=== PATIENT | female | born 1955 | race Caucasian/White ===

== ENCOUNTER → 2017-08-19 | Outpatient (CLI) | payer OTHER ==
[2017-08-19 17:56] LABS: BASO % 0.6 %; BASO ABS # 0.05 K/uL (0-0.2); EOS % 3.6 %; EOS ABS # 0.31 K/uL (0-0.5); HEMATOCRIT 37.9 % (37-47); HEMOGLOBIN 12.7 g/dL (12.0-16.0); IG# 0.02 K/uL (0.00-0.02); LYMPH % 19.8 %; LYMPH ABS # 1.71 K/uL (1.2-3.4); MEAN CELL VOLUME 95.7 fL (80-100); MEAN CORPUSCULAR HEMOGLOBIN 32.1 pg (25-34); MEAN CORPUSCULAR HGB CONC 33.5 g/dl (32-36); MONO % 9.5 %; MONO ABS # 0.82 K/uL (0.11-0.59); NEUT % 66.3 %; NEUT ABS # 5.71 K/uL (1.4-6.5); PLATELET COUNT 269 K/uL (130-400); RED CELL DISTRIBUTION WIDTH CV 13.5 % (11.5-14.5); RED CELL DISTRIBUTION WIDTH SD 46.7 fL (36.4-46.3); WHITE BLOOD COUNT 8.62 K/uL (4.8-10.8)
[2017-08-19 18:37] LABS: ALT/SGPT 23 U/L (12-78); BLOOD UREA NITROGEN 13 mg/dl (7-18); CALCIUM 8.9 mg/dl (8.5-10.1); CARBON DIOXIDE 30 mmol/L (21-32); CREATININE 0.92 mg/dl (0.60-1.20); GLUCOSE 102 mg/dl (70-99); POTASSIUM 3.3 mmol/L (3.5-5.1); SODIUM 132 mmol/L (136-145)
[2017-08-19 18:47] LABS: ALKALINE PHOSPHATASE 100 U/L (45-117); AST/SGOT 16 U/L (15-37); TOTAL PROTEIN 7.7 gm/dl (6.4-8.2)
== END | disposition home or self-care (01) ==
LOC: C.LABMFLN 16:39
PROVIDERS: ATTEND Family Medicine
DX: N05.2 Unspecified nephritic syndrome with diffuse membranous glomerulonephritis (principal); E03.9 Hypothyroidism, unspecified

== ENCOUNTER 2022-02-03 09:26 | Observation (INO) ==
--- NOTE | 2022-01-02 11:30 | PAT Medication Instructions ---
Medication Instructions Date of Service January 02, 2022 Home Medications Medication Instructions Recorded labetalol 100 mg tablet 100 mg PO BID #180 tabs 03/10/21 tramadol 50 mg tablet 50 mg PO TID PRN pain #90 tabs 12/30/21 labetalol 100 mg tablet 100 mg PO BID atorvastatin 10 mg tablet 10 mg PO QPM felodipine 10 mg tablet,extended release 24 hr 10 mg PO HS levothyroxine 125 mcg tablet 125 mcg PO QAM losartan 100 mg tablet 100 mg PO QAM naproxen 500 mg tablet 500 mg PO BID PRN tramadol 50 mg tablet 50 mg PO TID PRN ASK your surgeon for instructions naproxen 500 mg tablet 500 mg PO BID PRN DO NOT take the morning of surgery losartan 100 mg tablet 100 mg PO QAM Take morning of surgery With a small sip of water, OTHERWISE NOTHING TO EAT OR DRINK AFTER MIDNIGHT: labetalol 100 mg tablet 100 mg PO BID levothyroxine 125 mcg tablet 125 mcg PO QAM tramadol 50 mg tablet 50 mg PO TID PRN(if needed) Take evening before surgery labetalol 100 mg tablet 100 mg PO BID atorvastatin 10 mg tablet 10 mg PO QPM felodipine 10 mg tablet,extended release 24 hr 10 mg PO HS tramadol 50 mg tablet 50 mg PO TID PRN(if needed) Other Notes If you have any questions please call us at [phone] or [phone] or [phone] or [phone]
--- NOTE | 2022-01-09 10:58 | Anesthesiology Consultation ---
Date of Service January 09, 2022 Assessment & Plan (1) Encounter for pre-operative examination: - New onset A. fib with RVR: Preop EKG done at [facility] 01/09/22 notes new onset a. fib with RVR. Asymptomatic. Patient transported to [facility] ER for further evaluation. [facility] ER note (01/09/22): "Of note, the patient was witnessed to spontaneously cardioverted to normal sinus rhythm upon having her saline lock placed. The patient denied feeling palpitations or symptoms during her atrial fibrillation with RVR and also denied feeling any symptoms when she spontaneously cardioverted. Review of the telemetry demonstrated a prolonged asystolic pause of 5 seconds until normal sinus rhythm resumed. Given the patient was asymptomatic and has denied any periods of syncope or near syncope reasonable to proceed with outpatient follow-up for her new onset atrial fibrillation/paroxysmal atrial fibrillation. Case was reviewed with [place] cardiology on-call, Dr. Armstrong. Given the patient has not had episodes of syncope or near syncope and has been asymptomatic agrees with outpatient follow-up. Appreciate recommendations for the patient to specifically follow-up with electrophysiology given her prolonged pauses upon spontaneous cardioversion. Additionally, appreciate recommendations to inform the patient not to drive until this is further evaluated. CHADSVASC 3, agrees with Eliquis for anticoagulation and given the patient is currently in normal sinus rhythm in the 60s on her labetalol for blood pressure no need to add beta-yola at this time." > Pt started on Eliquis 5 mg BID* - Awaiting cardiology preop evaluation (scheduled 01/17; Dr. Vargas). - Awaiting surgeon-ordered PCP preop evaluation (scheduled 01/20; [facility]). - COVID screening: Per assessment on 01/09: No known COVID-19 positive contacts or current COVID-19 related symptoms. Travel screen negative. Patient vaccinated. Surgeon arranging preop COVID testing. Awaiting results. Chart Review Chart Review: Patient seen in Pre Admission Testing Teaching & Discussion Pre-Anesthesia Teaching/Discussion Notes: Instructed NPO after midnight before surgery,except medications with 15 cc of water. Medication instructions provided according to the [facility] guidelines. History Surgery Operation Date: 02/03/22 07:15 Proposed Procedures p Left Total Knee Arthroplasty - Angel Chung MD Height/Weight Height: 5 ft 3 in Weight: 84.5 kg Allergies Allergy/AdvReac Type Severity Reaction Status Date / Time No Known Drug Allergies Allergy Unknown Verified 01/09/22 13:40 Medications Home Medications Medication Instructions Recorded Confirmed Last Taken labetalol 100 mg tablet 100 mg PO BID #180 tabs 03/10/21 01/09/22 Unknown felodipine 10 mg tablet,extended 10 mg PO HS 12/27/21 01/09/22 Unknown release 24 hr levothyroxine 125 mcg tablet 125 mcg PO QAM 12/27/21 01/09/22 Unknown naproxen 500 mg tablet 500 mg PO BID PRN Pain 12/27/21 01/09/22 Unknown tramadol 50 mg tablet 50 mg PO TID PRN pain #90 tabs 12/30/21 01/09/22 Unknown atorvastatin 10 mg tablet 10 mg PO QPM #90 tabs 01/05/22 01/09/22 Unknown losartan 100 mg tablet 100 mg PO QAM #90 tabs 01/05/22 01/09/22 Unknown apixaban 5 mg tablet (Eliquis) 5 mg PO Q12H #60 tabs 01/09/22 Unknown Past Medical History Medical History Benign essential hypertension H/O adenomatous polyp of colon History of COVID-19 Dx 05/2020 Symptoms at time: fatigue, "sinus issues" > resolved Hyperlipidemia Hypothyroidism Obesity Exercise / Class Metabolic Activity III < 4 Walking/Shop/Light housework (one FS (no CP, mild SOB)) Past Family History Family History Mother Hypertension Uterine cancer Father Hypertension Past Surgical History Surgical History H/O colonoscopy H/O dilation and curettage History of bilateral salpingo-oophorectomy History of biopsy kidney History of bunionectomy Hx of knee surgery repair of quadriceps tendon right knee S/P hysterectomy S/P tonsillectomy Past Anesthesia History No Hx of Anesthesia Complications and No Family Hx of Anesthesia Complications History of PONV No Hx of PONV and No Hx of Motion Sickness Social History Smoking Status: Former smoker Do You Dip or Chew Tobacco: No Smoking End Date: 2012 Hx Alcohol Use: Yes Alcohol type: beer and wine alcohol intake frequency: a few times a month Hx Substance Use: No Review of Systems Patient denies chest pain, shortness of breath, fever, chills, cough, wheezing, palpitations. Physical Exam Vital Signs VITALS BP 108/62 P 65 (initially on pulse ox) > 130s (by manual/EKG) TEMP 98.0 SP02 96%RA RESP 16 PHYSICAL Full cervical extension range of motion. Full TMJ range of motion. TMD 3.5 finger breaths Mallampati Score 3 Dentition: intact, several crowns Lungs: clear throughout to auscultation Cardiac: tachycardic, irregular rhythm, no murmurs noted Spine: normal Carotid arteries: negative bruit Extremities: no edema Lab Results Anesthesia Preop Results Results Anesthesia Widget: WBC 11.76 K/ul (4.8-10.8) H 01/09/22 Hgb 14.1 g/dl (12.0-16.0) 01/09/22 Hct 41.0 % (34.1-44.9) 01/09/22 Plt 313 K/uL (130-400) 01/09/22 Na 137 mmol/L (136-145) 01/09/22 K 3.9 mmol/L (3.5-5.1) 01/09/22 Cl 102 mmol/L (98-107) 01/09/22 CO2 24 mmol/L (21-32) 01/09/22 BUN 18 mg/dl (6-23) 01/09/22 Creat 1.15 mg/dl (0.6-1.2) 01/09/22 Glucose Level 107 mg/dl (70-99(Fasting)) H 01/09/22 PT 10.9 Seconds (9.0-12.0) 01/09/22 PTT 26.1 Seconds (21.0-31.0) 01/09/22 INR 1.0 (0.9-1.1) 01/09/22 TSH 4.139 uIu/ml (0.300-4.500) 01/09/22 HA1c 5.5 % (4.5-5.6) 01/09/22 Urine Color Yellow 01/09/22 Urine Appearance Cloudy (Clear) A 01/09/22 Urine pH 6.5 (4.5-7.5) 01/09/22 Urine Specific [place] 1.017 (1.000-1.030) 01/09/22 Urine Protein 2+ (Negative) H 01/09/22 Urine Glucose (UA) Negative (Negative) 01/09/22 Urine Ketones Trace (Negative) H 01/09/22 Urine Blood Negative (Negative) 01/09/22 Urine Nitrite Negative (Negative) 01/09/22 Urine Bilirubin Negative (Negative) 01/09/22 Urine Urobilinogen Negative (Negative) 01/09/22 Urine Leukocyte Esterase 2+ (Negative) H 01/09/22 Urine WBC (Auto) 5-10 /hpf (0-5) H 01/09/22 Urine RBC (Auto) 5-10 /hpf (0-4) H 01/09/22 Urine Hyaline Casts (Auto) 10-30 /lpf (0-5) H 01/09/22 Urine Epithelial Cells (Auto) >30 /lpf (0-5) H 01/09/22 Urine Bacteria (Auto) Negative (Negative) 01/09/22 SARS-CoV-2, RNA, NAAT NEGATIVE (NEGATIVE) 01/09/22 Blood Type A Positive 01/09/22 Antibody Screen NEGATIVE 01/09/22 Testing Laboratory Results 01/09/22 TSH 4.139 (WNL) TROPONIN 5.7 (WNL) Electrocardiogram Date: 01/09/22 EKG (01/09/22 11:23): Atrial fibrillation with RVR at [address] depression, c onsider subendocardial injury. EKG (01/09/22 11:58): Atrial fibrillation with RVR at [address] and T wave abnormality. EKG (01/09/22 12:16): Normal sinus rhythm with sinus arrhythmia at [address] and T wave abnormality. Chest X-Ray Date: 01/09/22 Findings: + NAD
--- NOTE | 2022-02-02 06:50 | History & Physical Report ---
Date of Service February 02, 2022 Assessment & Plan (1) Primary osteoarthritis of left knee: Plan: Treatment options discussed with patient. She has failed conservative measures. Would unlikely get any intermediate frame tender relief from arthroscopy. She would like to proceed with knee replacement. Risks, benefits and alternatives to surgery including but not limited to infection, DVT, pain, stiffness, need for revision surgery, damage to blood vessels, damage to nerves, PE, , were discussed with the patient and they wish to proceed. Plan on left total knee arthroplasty scheduled for [facility] on 02/03/[address] Chung. Will plan on resuming home eliquis post op for DVT prophylaxis. Plan on home health PT. All questions answered. F/u post op. History of Present Illness Chief Complaint: Left knee pain Primary Care Provider: Hermelinda Read MD 66 year old female with PMHx significant for HTN, high cholesterol, hypothyroid, a-fib on Eliquis who presents with ongoing left knee pain. Pain has pain interfering with her daily activities. She has failed conservative measures including cortisone and viscoelastic injections. She would like to proceed with surgical intervention. Patient denies headaches, sweats, fevers, chills, double vision, blurred vision, cough, sore throat, dysphagia, chest pain, sob, wheezing , n/v/d/c, numbness, tingling, fatigue, urinary symptoms, mood disorders. ROS positive for left knee pain and stiffness. Allergies Allergy/AdvReac Type Severity Reaction Status Date / Time No Known Drug Allergies Allergy Unknown Verified 01/20/22 11:32 Home Medications Medication Instructions Recorded Confirmed Type felodipine 10 mg tablet,extended 10 mg PO HS 12/27/21 01/20/22 History release 24 hr levothyroxine 125 mcg tablet 125 mcg PO QAM 12/27/21 01/20/22 History naproxen 500 mg tablet 500 mg PO BID PRN Pain 12/27/21 01/20/22 History tramadol 50 mg tablet 50 mg PO TID PRN pain #90 tabs 12/30/21 01/20/22 Rx atorvastatin 10 mg tablet 10 mg PO QPM #90 tabs 01/05/22 01/20/22 Rx losartan 100 mg tablet 100 mg PO QAM #90 tabs 01/05/22 01/20/22 Rx apixaban 5 mg tablet (Eliquis) 5 mg PO Q12H #60 tabs 01/09/22 01/20/22 Rx nebivolol 20 mg tablet (Bystolic) 20 mg PO DAILY #30 tabs 01/17/22 01/20/22 Rx Past Med/Surg History Medical History Benign essential hypertension H/O adenomatous polyp of colon History of COVID-19 Hyperlipidemia Hypothyroidism Obesity Surgical History H/O colonoscopy H/O dilation and curettage History of bilateral salpingo-oophorectomy History of biopsy History of bunionectomy Hx of knee surgery S/P hysterectomy S/P tonsillectomy Family History Mother Hypertension Uterine cancer Father Hypertension Social History Smoking Status: Former smoker Second Hand Exposure: No; Hx Alcohol Use: Yes Alcohol type: beer and wine Hx Substance Use: No Preferred Language: Greenlandic Communication Ability: Effective 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 Beliefs That Will Affect Care: None marital status: Current Living Situation: Spouse current occupational status: retired Feels Safe at Home: Yes Assistive Devices: None Review of Systems All systems reviewed & are unremarkable except as noted in HPI & below Physical Exam Constitutional: well developed and well nourished; no acute distress Eyes: PERRL, conjunctivae normal, anicteric sclerae ENMT: external ear and nose normal, oropharynx normal Neck: trachea midline, no thyromegaly Respiratory: normal respiratory effort, lungs clear to auscultation Cardiovascular: RRR, no murmur, no edema Musculoskeletal: Left knee: Mild varus alignment. Medial joint line tenderness. Guarded Oliva's. Stable to valgus and varus stress. ROM 0-135 degrees. Skin: no rashes, warm and dry Neurologic: patellar DTR's 2+ bilat, sensation intact Psychiatric: A+Ox3, euthymic affect Results & Data ([place]) Diagnostic Findings Left knee: Moderate joint space narrowing medial compartment with periarticular osteophyte formation. MRI demonstrates subchondral bone marrow edema medial tibial plateau and medial femoral condyle.
[~2022-02-03 09:26] MED LIST: ACETAMINOPHEN 500 MG TAB PO SCH; BUPIVACAINE 0.5 % 5 MG/1 ML PF 10ML VIAL ONE; CeleBREX 200 MG CAP PO SCH; FAMOTIDINE 20 MG TAB PO SCH; GABAPENTIN 300 MG CAP PO SCH; LIDOCAINE 2% 20 MG/ML 5 ML SYR IV ONE; LR 500ML BOLUS, THEN 15ML/HR IV SCH; METOCLOPRAMIDE HCL 10 MG TABLET PO SCH; MIDAZOLAM HCL 1 MG/ML 2ML VIAL ONE; PROPOFOL IV EMULSION 10 MG/ML 20 ML VIAL IV ONE; ROPIVACAINE 0.5% 5 MG/ML 30 ML VIAL ONE; ROPIVACAINE 0.5% HCL/PF 150 MG, BUPIVACAINE 0.75% MPF 20 ML, EPINEPHrine 30MG/30ML (OR ... INSTIL SCH; TRANEXAMIC ACID 1,000 MG **IV Intra-op IV SCH; TRANEXAMIC ACID 1,000 MG **IV Pre-op IV SCH; ceFAZolin 2000MG 2,000 MG/15 ML SYR IV SCH; dexAMETHasone 4 MG TAB PO SCH; fentaNYL citrate 100 MCG/2 ML VIAL ONE
--- NOTE | 2022-02-03 09:34 | History & Physical Bridge Note ---
Date of Service February 03, 2022 History & Physical Bridge Note I have examined the patient, reviewed the History & Physical and in the interval since the performance of the History & Physical I have noted the following changes of clinical significance: no changes noted
[2022-02-03] MEDS ORDERED: ORTHO JOINT ANESTHETIC ONE (09:58)
[2022-02-03] MEDS ORDERED: ePHEDrine sulfate 50 MG/ML AMP IV PRN (10:38)
[2022-02-03] MEDS ORDERED: ONDANSETRON INJ 2 MG/ML 2 ML VIAL IV PRN ×2 (10:38→15:09)
[2022-02-03] MEDS ORDERED: ATROPINE SULFATE 0.1 MG/ML 10ML SYR IV PRN (10:38)
[2022-02-03] MEDS ORDERED: fentaNYL citrate 100 MCG/2 ML VIAL IV PRN (10:38)
[2022-02-03] MEDS ORDERED: PROPOFOL IV EMULSION 10 MG/ML 20 ML VIAL IV ONE ×3 (11:08→12:24)
[2022-02-03] MEDS ORDERED: ONDANSETRON INJ 2 MG/ML 2 ML VIAL ONE ×2 (11:09→12:37)
[2022-02-03] MEDS ORDERED: DEXAMETHASONE SOD INJ 4 MG/ML VIAL ONE (11:09)
[2022-02-03] MEDS ORDERED: ePHEDrine sulfate 50 MG/ML SYR ONE (11:15)
[2022-02-03] MEDS ORDERED: PHENYLEPHRINE HCL 10 MG/ML VIAL ONE (11:33)
[2022-02-03] MEDS ORDERED: fentaNYL citrate 100 MCG/2 ML VIAL ONE (12:17)
--- NOTE | 2022-02-03 12:48 | Operative Report ---
Post Operative Report Pre & Post Diagnosis Operation Date: 02/03/22 11:20 Pre-Op Diagnosis: Unilateral Primary Osteoarthritis, Left Knee Post-Op Diagnosis: Unilateral Primary Osteoarthritis, Left Knee I identified the patient and participated in the time-out.: Yes Procedure Operation Date: 02/03/22 11:20 Actual Procedures p Left Total Knee Arthroplasty(Left), superficial wound VAC- Angel Chung MD Surgeon Angel Chung MD Rope Twisting Machine Operator Greg RUIZ Estimated Blood Loss 5 Findings Consistent with Post-Op Diagnosis Specimens Bone cuts Drains 2 Hemovac Anesthesia Type MAC Spinal Regional Complications none Disposition Disposition: Recovery Room Indications 66-year-old female chronic left knee pain failed conservative management. Radiographs demonstrate she has patellofemoral and medial compartment osteoarthritis with significant medial compartment joint space narrowing on weightbearing films and joint space narrowing the patellofemoral joint. MRI demonstrates bone edema both sides of the joint with grade 4 osteoarthritis of the femur and grade 4 osteoarthritis of the patella. Description of Procedure Patient was taken to the operating room placed supine on the operating table and anesthetized under spinal MAC regional block anesthesia. Exam under anesthesia demonstrated obese upper thigh moderate obesity in the no instability good range of motion. A pneumatic tourniquet was placed about the thigh of the left lower extremity. The left lower extremity was prepped and draped in usual sterile fashion. The leg was elevated exsanguinated with an Esmarch bandage and the pneumatic tourniquet was raised to 350 mm mercury. An anterior incision was made across the left knee. The skin was incised longitudinally subcutaneous flaps were elevated and an incision was made through the medial retinaculum extending up into the mid third of the quadriceps tendon and extended down to the medial tibial tubercle. Intra-articular findings demonstrated a strip of grade IV chondromalacia on the medial femoral condyle and a kissing lesion on the tibia which was also grade 4 anteromedially. There is otherwise grade III chondromalacia there. The patella had central region grade IV chondromalacia. There was circumferential osteophytes around the patella. There was a large quadriceps traction spur.. The knee was exposed by excising the infrapatellar fat pad, excising the meniscal remnants and anterior cruciate ligament. Any inflamed synovial tissue was resected. The fat pad over the anterior femur was resected for placement of the component in that area. The lateral synovial bands were release. The femur was exposed. The custom femoral cutting block was pinned in position. The distal femoral cutting block was applied. The distal femoral cut was made with the oscillating saw. The size 5, 4-in-1 cutting block was placed. The anterior and posterior chamfer cuts were made. The knee was extended and a subperiosteal peel lateral release was performed around the patella. The patella width was measured and width was reproduced using freehand cut technique. The 32 millimeter symmetrical patella was used. 3 drill holes are made for the pegs. The tibia was exposed. A custom tibial cutting block was positioned and drill holes were made for the cutting guide. Cutting guide was placed and the proximal cut was made with the oscillating saw. All osteophytes were resected. The lamina char conveyor tender was used to assess ligamentous balance and the ligaments were balanced in extension and flexion. A small medial posterior medial release was performed. The tibia was reexposed and measured for a size C tibial component. This was externally rotated in line with the tibial tubercle and the fixation pins were drilled. The proximal tibia was fashioned with the drill and punch. The size 5 CR femoral trial was inserted. The trial MC inserts were used. The 11 mm insert gave balanced li gaments through full range of motion. The patella tracked centrally. the trials were removed. The orthomix anesthetic cocktail was injected per protocol. The knee was then copiously irrigated with pulsatile lavage saline solution. The final components were cemented with Refobacin bone cement. The final components were [employer] persona left 5 standard CR femoral component, left C tibial c omponent, left 11 MC polyethylene, 32 symmetrical patella. After the cement cured with the knee in full extension the Betadine soak was used per protocol. The knee joint was copiously irrigated with pulsatile lavage saline solution . 2 drains were brought out laterally and connected to a Hemovac. The quadriceps tendon and medial retinaculum were closed with interrupted [id number] #1 Vicryl sutures. The knee was taken through a full range of motion and repair was secure. The subcutaneous tissues were closed with 2-0 Vicryl sutures and skin was closed with joyce. Lam and Acticoat superficial wound VAC was applied and the patient tolerated the procedure well. Greg RUIZ my physician assistant men's soccer coach, assisted in soft tissue retraction, instrument management ,leg positioning, the closure and will participate in the postoperative care of the patient. I attest to the content of the Intraoperative Record and any orders documented therein. Any exceptions are noted below.
--- NOTE | 2022-02-03 14:01 | XRay Report ---
XR knee LT 1 or 2V routine CLINICAL HISTORY: Postoperative evaluation. COMPARISON: None FINDINGS: Alignment of the total left knee arthroplasty is anatomic. There is no periprosthetic frac ture or unexpected radiopaque foreign body. There are drains and skin joyce. IMPRESSION: Expected findings following total left knee arthroplasty. ACT 112: Negative or not required by law. Electronically signed by: Carlos Souza M.D. 02/03/2022 2:00 PM
--- NOTE | 2022-02-03 14:43 | Anesthesiology Progress Note ---
Date of Service February 03, 2022 Anesthesia Post Procedure Vital Signs Vital Signs: Temp Pulse Pulse Resp BP Pulse Ox O2 Del Method 02/03/22 14:30 54 L 12 134/67 96 Room Air 02/03/22 14:15 51 L 17 134/67 98 Room Air 02/03/22 13:50 36.4 C L 57 L 18 131/73 99 Room Air 02/03/22 13:40 56 L 14 129/68 100 Oxymask 02/03/22 14:00 55 L 15 132/62 97 Room Air 02/03/22 13:34 37 C 52 L 17 147/67 H 100 Oxymask 02/03/22 09:51 36.8 C 57 L 18 172/76 H 99 Room Air O2 Flow Rate 02/03/22 14:30 02/03/22 14:15 02/03/22 13:50 02/03/22 13:40 4 02/03/22 14:00 02/03/22 13:34 6 02/03/22 09:51 Pain Intensity Left Shoulder: Pain Intensity: 4 Transfer of Care Handoff Completed per policy Notes Mental Status: alert / awake / arousable Patient Amnestic to Procedure: Yes Nausea / Vomiting: adequately controlled Pain: adequately controlled Airway Patency, RR, SpO2: stable & adequate BP & HR: stable & adequate Hydration State: stable & adequate Neuraxial Anesthesia: was administered and sensory block is resolving Anesthetic Complications: no major complications apparent and Pt Satisfied with anesthetic care
[2022-02-03] MEDS ORDERED: bisacodyL 10 MG SUPP PR PRN (15:09)
[2022-02-03] MEDS ORDERED: METOCLOPRAMIDE HCL INJ 5 MG/ML 2 ML VIAL IV PRN (15:09)
[2022-02-03] MEDS ORDERED: HYDROmorphone INJ 0.5 MG/0.5 ML SYR IV PRN (15:09)
[2022-02-03] MEDS ORDERED: NALOXONE HCL 0.4 MG/1 ML VIAL/CARP IV PRN (15:09)
[2022-02-03] MEDS ORDERED: MAGNESIUM HYDROXIDE SUSP 30 ML UDC PO PRN (15:09)
--- NOTE | 2022-02-03 15:30 | Hospitalist Consultation ---
Date of Consultation February 03, 2022 Assessment & Plan (1) Primary osteoarthritis of left knee: S/p Left Total Knee Arthroplasty with Dr. Chung on 02/03 with minimal EBL. - Will monitor CBC; at risk for acute blood loss anemia. - Post-operative care per primary team - DVT ppx per primary team will be her home anticoagulation (2) Paroxysmal atrial fibrillation: Unknown disease burden per cardiology note on 01/17/2022. In the middle of her Holter period. To me, sounds slightly irregular on exam. - Continue home anticoagulation - Continue home beta-yola (3) HBP (high blood pressure): BP today is 127/75. - Continue home felodipine, losartan, and nebivolol (4) Hypothyroidism: TSH was 4.1 in 12/2021. - Continue home levothyroxine 125 mcg (5) Hyperlipidemia: - Continue statin Given medical stability, Hospital Medicine team will sign off. Please re-consult with any questions or concerns. Thank you for letting us assist in the care of this patient! History of Present Illness Attending Physician: Angel Chung MD History of Present Illness 66yo F w/ hx of PAF who presents as a routine medical consult for Left Total Knee Arthroplasty with Dr. Chung on 02/03. Patient failed conservative management. Doing well post-operatively with block still in effect and NV intact in the left leg. She has no complaints at this time other than being tired because she did not sleep well due to anxiety about the surgery. Allergies Allergy/AdvReac Type Severity Reaction Status Date / Time No Known Drug Allergies Allergy Unknown Verified 02/03/22 09:46 Home Medications Medication Instructions Recorded Confirmed Type felodipine 10 mg tablet,extended 10 mg PO HS 12/27/21 02/03/22 History release 24 hr levothyroxine 125 mcg tablet 125 mcg PO QAM 12/27/21 02/03/22 History naproxen 500 mg tablet 500 mg PO BID PRN Pain 12/27/21 02/03/22 History tramadol 50 mg tablet 50 mg PO TID PRN pain #90 tabs 12/30/21 02/03/22 Rx atorvastatin 10 mg tablet 10 mg PO QPM #90 tabs 01/05/22 02/03/22 Rx losartan 100 mg tablet 100 mg PO QAM #90 tabs 01/05/22 02/03/22 Rx apixaban 5 mg tablet (Eliquis) 5 mg PO Q12H #60 tabs 01/09/22 02/03/22 Rx nebivolol 20 mg tablet (Bystolic) 20 mg PO DAILY #30 tabs 01/17/22 02/03/22 Rx Patient History Medical History Benign essential hypertension H/O adenomatous polyp of colon History of COVID-19 Dx 05/2020 Symptoms at time: fatigue, "sinus issues" > resolved Hyperlipidemia Hypothyroidism Obesity Paroxysmal atrial fibrillation Surgical History H/O colonoscopy H/O dilation and curettage History of bilateral salpingo-oophorectomy History of biopsy kidney History of bunionectomy Hx of knee surgery repair of quadriceps tendon right knee S/P hysterectomy S/P tonsillectomy Family History Mother Hypertension Uterine cancer Father Hypertension Social History Smoking Status: Former smoker Smoking End Date: Quit 2012; Second Hand Exposure: No; Do You Dip or Chew Tobacco: No; Tobacco Cessation Education Requested by Patient: No Hx Alcohol Use: Yes Alcohol type: beer and wine Hx Substance Use: No Preferred Language: Albanian Communication Ability: Effective Paralegal Instructor Required: No Beliefs That Will Affect Care: None marital status: Current Living Situation: Spouse current occupational status: retired Other Information That Helps Us Care for You: No Feels Safe at Home: Yes Safety Concerns: Feels Safe At This Time Assistive Devices: None Review of Systems Review of Systems: All systems reviewed & are unremarkable except as noted in HPI & below Physical Exam Constitutional: WD/WN, vitals as above Eyes: EOM intact bilaterally; no conjunctival abnormality ENMT: external ear and nose normal, oropharynx normal Neck: trachea midline, no thyromegaly normal visual inspection Respiratory: normal respiratory effort, lungs clear to auscultation no respiratory distress Cardiovascular: Rate/Rhythm: regular rate and + irregularly irregular Heart Sounds: normal S1 and normal S2; no murmur Gastrointestinal (Abdomen): Inspection/Auscultation: abdomen normal to inspection; abdomen not distended Musculoskeletal: Extremities: + lower extremity abnormal to inspection (Left knee in bandage) Skin: no rashes, warm and dry Neurologic: moves all extremities and awake Psychiatric: Orientation: alert, oriented to person and cooperative Results & Data Results & Data ([facility]) Vital Signs (Past 12 Hours) Vital Signs Temp Pulse Pulse Resp BP Pulse Ox O2 Del Method 02/03/22 15:09 36.3 C L 61 18 127/75 100 Room Air 02/03/22 14:30 54 L 12 134/67 96 Room Air 02/03/22 14:15 51 L 17 134/67 98 Room Air 02/03/22 13:50 36.4 C L 57 L 18 131/73 99 Room Air 02/03/22 13:40 56 L 14 129/68 100 Oxymask 02/03/22 14:00 55 L 15 132/62 97 Room Air 02/03/22 13:34 37 C 52 L 17 147/67 H 100 Oxymask 02/03/22 09:51 36.8 C 57 L 18 172/76 H 99 Room Air O2 Flow Rate 02/03/22 15:09 02/03/22 14:30 02/03/22 14:15 02/03/22 13:50 02/03/22 13:40 4 02/03/22 14:00 02/03/22 13:34 6 02/03/22 09:51 PG Care Time/CCT Total # of Minutes Spent Total Time Spent with Patient: Total time spent is greater than 50% in coordination of care (as documented) at patient's floor/unit and/or counseling patient: Coding Level of Care Code 41395 Office/OBS Consult Lvl 4 Diagnoses Primary osteoarthritis of left knee M17.12 Paroxysmal atrial fibrillation I48.0 HBP (high blood pressure) I10 Hypertension type: primary hypertension Hypothyroidism E03.9 Hyperlipidemia E78.5 (1) HBP (high blood pressure) Hypertension type: primary hypertension Qualified Code(s): I10 - Essential (primary) hypertension
[2022-02-03] MEDS: ACETAMINOPHEN 500 MG TAB PO SCH ×2 (16:35→21:53)
[2022-02-03] MEDS: SODIUM CHLORIDE 0.9% 1000ML 1,000 ML IV SCH (16:35)
[2022-02-03] MEDS: oxyCODONE HCL IR 5 MG TAB (IMMEDIATE RELEASE) PO PRN (18:21)
[2022-02-03] MEDS: ceFAZolin 2000MG 2,000 MG/15 ML SYR IV SCH (18:41)
[2022-02-03] MEDS: DOCUSATE SODIUM 100 MG CAP PO SCH (20:14)
[2022-02-03] MEDS ORDERED: SENNA 8.6 MG TAB PO SCH (21:00)
[2022-02-03] MEDS ORDERED: FELODIPINE 5 MG TABCR PO SCH (21:00)
[2022-02-03] MEDS ORDERED: ATORVASTATIN 10 MG TAB PO SCH (21:00)
[2022-02-04] MEDS: SODIUM CHLORIDE 0.9% 1000ML 1,000 ML IV SCH (02:15)
[2022-02-04] MEDS: oxyCODONE HCL IR 5 MG TAB (IMMEDIATE RELEASE) PO PRN ×2 (02:22→08:03)
[2022-02-04] MEDS: ceFAZolin 2000MG 2,000 MG/15 ML SYR IV SCH (03:56)
[2022-02-04] MEDS: ACETAMINOPHEN 500 MG TAB PO SCH (06:10)
[2022-02-04] MEDS ORDERED: LEVOTHYROXINE SODIUM 125 MCG TABLET PO SCH (06:30)
[2022-02-04] MEDS: DOCUSATE SODIUM 100 MG CAP PO SCH (07:58)
[2022-02-04] MEDS ORDERED: APIXABAN 5 MG TABLET PO SCH (09:00)
[2022-02-04] MEDS ORDERED: MULTIVITAMIN TAB PO SCH (09:00)
[2022-02-04] MEDS ORDERED: LOSARTAN POTASSIUM 50 MG TAB PO SCH (09:00)
[2022-02-04] MEDS ORDERED: METOPROLOL TARTRATE 100 MG TAB PO SCH (09:00)
--- NOTE | 2022-02-04 09:04 | Orthopedic Progress Note ---
Date of Service February 04, 2022 Assessment & Plan (1) Primary osteoarthritis of left knee: Plan: POD 1 s/p Left TKA PT/OT protocols. WBAT. DVT prophylaxis - Diandra, SCD's, RAHUL's Pain management as written. Labs pending. DC planning - services upon dc. Admission and Anticipated Discharge Date Admission Date: February 03, 2022 Subjective POD 1 Pt sitting up eating breakfast. No complaints this AM. Feels well. Pain controlled. Physical Exam Physical Exam: Dressings are C/D/I. Calves soft, NT. NV intact. Toes mobile. Good DF/PF of the left foot. HV drainage 125ml from the previous shift. Results & Data ([facility]) Vital Signs (Past 12 Hours) Vital Signs Temp Pulse Resp BP BP Pulse Ox O2 Del Method 02/04/22 08:00 Room Air 02/04/22 08:13 36.4 C L 56 L 16 159/77 H 97 Room Air 02/04/22 03:03 36.4 C L 61 14 147/62 H 97 Room Air 02/03/22 23:00 36.3 C L 63 18 141/77 H 97 Room Air
[2022-02-04 09:30] LABS: Hematocrit (blood only) 32.6 % (34.1-44.9); Hemoglobin 11.2 g/dl (12.0-16.0); Mean Corpuscular Hemoglobin 32.6 pg (25.0-34.0); Mean Corpuscular Hgb Conc 34.4 g/dL (32.0-36.0); Mean Corpuscular Volume 94.8 fL (80.0-100.0); Mean Platelet Volume 10.4 fL (9.4-12.3); Platelet Count 250 K/uL (130-400); RDW Coefficient of Variation 12.9 % (11.5-14.5); RDW Standard Deviation 44.1 fL (36.4-46.3); Red Blood Count 3.44 M/uL (3.93-5.22); White Blood Count 17.51 K/ul (4.8-10.8)
[2022-02-04 10:05] LABS: BUN Creatinine Ratio 18.8 (10-20); Calcium 8.7 mg/dl (8.5-10.1); Creatinine Clr Calc Pharmacy 72.3 ml/min; Est GFR (African American) 89.7 ml/min; Est GFR (Non-African American) 77.4 ml/min; Potassium 3.9 mmol/L (3.5-5.1)
--- NOTE | 2022-02-05 10:18 | Discharge Summary ---
Date of Service February 05, 2022 Admission HPI Per Admitting Provider 66 year old female with PMHx significant for HTN, high cholesterol, hypothyroid, a-fib on Eliquis who presents with ongoing left knee pain. Pain has pain interfering with her daily activities. She has failed conservative measures including cortisone and viscoelastic injections. She would like to proceed with surgical intervention. Patient denies headaches, sweats, fevers, chills, double vision, blurred vision, cough, sore throat, dysphagia, chest pain, sob, wheezing, n/v/d/c, numbness, tingling, fatigue, urinary symptoms, mood disorders. ROS positive for left knee pain and stiffness. Admission Exam Per Admitting Provider Constitutional: well developed and well nourished; no acute distress Eyes: PERRL, conjunctivae normal, anicteric sclerae ENMT: external ear and nose normal, oropharynx normal Neck: trachea midline, no thyromegaly Respiratory: normal respiratory effort, lungs clear to auscultation Cardiovascular: RRR, no murmur, no edema Musculoskeletal: Left knee: Mild varus alignment. Medial joint line tenderness. Guarded Oliva's. Stable to valgus and varus stress. ROM 0-135 degrees. Skin: no rashes, warm and dry Neurologic: patellar DTR's 2+ bilat, sensation intact Psychiatric: A+Ox3, euthymic affect Principal Diagnosis Left knee osteoarthritis Discharge Exam Dressings are C/D/I. Calves soft, NT. NV intact. Toes mobile. Good DF/PF of the left foot. HV drainage 125ml from the previous shift. Constitutional well developed and well nourished; no acute distress Discharge Data Allergies Allergy/AdvReac Type Severity Reaction Status Date / Time No Known Drug Allergies Allergy Unknown Verified 02/03/22 09:46 Consultations 01/31/22 09:18 Consult Hospitalist Routine Procedures Performed Operation Date: 02/03/22 11:20 Actual Procedures p Left Total Knee Arthroplasty(Left) - Angel Chung MD Ordered Studies 02/03/22 05:00 US - OR guided needle placemen Routine Hospital Course (1) Primary osteoarthritis of left knee: POD 1 s/p Left TKA PT/OT protocols. WBAT. DVT prophylaxis - Eliquis, SCD's, RAHUL's Pain management as written. Labs pending. DC planning - services upon dc. Lab Results 02/03/22 02/04/22 02/04/22 Range/Units Unknown 08:51 08:51 WBC 17.51 H (4.8-10.8) K/ul RBC 3.44 L (3.93-5.22) M/uL Hgb 11.2 L (12.0-16.0) g/dl Hct 32.6 L (34.1-44.9) % MCV 94.8 (80.0-100.0) fL MCH 32.6 (25.0-34.0) pg MCHC 34.4 (32.0-36.0) g/dL RDW Std Deviation 44.1 (36.4-46.3) fL RDW Coeff of Lupis 12.9 (11.5-14.5) % Plt Count 250 (130-400) K/uL MPV 10.4 (9.4-12.3) fL Sodium 133 L (136-145) mmol/L Potassium 3.9 (3.5-5.1) mmol/L Chloride 101 (98-107) mmol/L Carbon Dioxide 23 (21-32) mmol/L Anion Gap 9 (3-11) BUN 15 (6-23) mg/dl Creatinine 0.80 (0.6-1.2) mg/dl Est Cr Clr Drug Dosing 72.3 ml/min Est GFR ( Amer) 89.7 ml/min Est GFR (Non-Af Amer) 77.4 ml/min BUN/Creatinine Ratio 18.8 (10-20) Glucose 134 H (70-99(Fasting)) mg/dl Calcium 8.7 (8.5-10.1) mg/dl SARS-CoV-2, RNA, NAAT NEGATIVE (NEGATIVE) Total Time Total Time Spent Total Time Spent (In Minutes): 20 Discharge Plan Discharge Items Patient Disposition: Home - Home Health Services Reason For Visit: Unilateral Primary Osteoarthritis, Left Knee Discharge Diagnosis: Left Knee Osteoarthritis Activity: Per Instructions section Weightbearing: Left weightbearing Weightbearing Comment: as tolerated with walker Non-emergency contact: Surgeon Call non-emergency contact if: you have any medication questions, your pain is not controlled, your temperature is above 101.5, your wound has increased redness and your wound has increased drainage Follow-up/Referrals: Hermelinda Read MD [Primary Care Provider] - Angel Chung MD [Surgeon] - (Follow up in 2 weeks for your first post operative check up) Diet: Regular Addtl Attending Provider Instructions: ACTIVITY RECOMMENDATIONS: SELF CARE INSTRUCTIONS AFTER TOTAL KNEE REPLACEMENT A. You may need to continue a physical therapy program after discharge from the hospital. There are several options available to you. Your doctor will assist you in selecting the best one for you. 1. An out-patient facility 2 to 3 times a week for therapy or home therapy. 2. Continue working on all exercises taught to you in the hospital. Your goals should be to increase bending of your knee to 90 degrees and beyond and to fully straighten your knee. B. You may progress at your own pace from walking with a walker or crutches to a cane; then to no assistive devices. C. Make walking a part of your daily routine. Be up as much as comfortable with rest periods throughout the day. Rest with leg elevation is very important. Use the ice wrap frequently for the first 3-4 weeks. D. There are no restrictions on activities. You may ride in a car, shop, participate in land title examiner and all social activities. E. Wear the long elastic stockings (RAHUL hose) 20 hours a day for 2 weeks after surgery. They can be removed several times a day for laundering and for a bath. F. You may shower, no tub baths until cleared by your doctor. SPECIAL CARE INSTRUCTIONS: VERY IMPORTANT TO READ AND REVIEW A. There are a few signs you need to watch for after you are home. Call [facility] if you notice any of the followin. Increased severe knee pain. Some pain is expected especially when you exercise. 2. Increased swelling in your leg or knee; pain or swelling of the calf muscle in either lower leg. 3. Any fluid drainage from the incision. 4. Shortness of breath or chest pain. B. Please call [facility] at if you have any concerns or questions about your operation or recovery. The doctor or his nurse will return your call promptly. C. You must take antibiotics before dental work, bladder, bowel or other surgery. Your doctor will provide you with a permanent care to carry describing this precaution. IMPORTANT: * CONTINUE TO TAKE YOUR ELIQUIS TWICE DAILY. * CALL IF INCREASED PAIN, REDNESS, DRAINAGE OR FEVER GREATER THAT 101. * WEAR RAHUL HOSE 20 HOURS PER DAY FOR 2 WEEKS. * ARLEEN Dressing - This is a large suction dressing covering your incision. This will help pull any excess drainage from the wound and allow your incision to heal properly. You may shower with this if you can keep the unit outside of the shower. If any bleeding or leakage is noted please call your doctor's office. This will remain on your incision for 7 days and then should be removed. This can be done yourself or by the home nursing staff if applicable. The entire unit is disposable once removed. Once removed, keep incision clean and dry. If redness or drainage is noted, please call your surgeon. . FOLLOW UP VISIT: If appointment is not already scheduled: Please call [facility] to make a follow-up appointment for 2 weeks after your surgery at . Stand-Alone Forms: My [facility] Amen., Smoking Cessation Medications and DC Order Prescriptions: New acetaminophen [Tylenol Extra Strength] 500 mg Tablet 1,000 mg PO Q8 14 Days Qty: 84 0RF polyethylene glycol 3350 [Miralax] 17 gram powder in packet 17 g PO DAILY PRN (Reason: constipation) Qty: 5 0RF oxycodone 5 mg tablet 5 mg PO Q4H MDD 6 PRN (Reason: pain) Qty: 30 0RF Continued atorvastatin 10 mg tablet 10 mg PO QPM Qty: 90 3RF Rx Instructions: noon losartan 100 mg tablet 100 mg PO QAM Qty: 90 3RF nebivolol [Bystolic] 20 mg tablet 20 mg PO DAILY Qty: 30 2RF Eliquis 5 mg tablet 5 mg PO Q12H Qty: 60 0RF levothyroxine 125 mcg tablet 125 mcg PO QAM Rx Instructions: TAKE 1 TABLET DAILY (DOSE CHANGE) felodipine 10 mg tablet extended release 24 hr 10 mg PO HS Discontinued tramadol 50 mg tablet 50 mg PO TID PRN (Reason: pain) Qty: 90 0RF naproxen 500 mg Tablet 500 mg PO BID PRN (Reason: Pain) Discharge Orders: Discharge Order (Routine); Ordered 02/04/22 Ordered By: Lalo Villa Admission Data Admit Date/Time: 02/03/22 13:38 Attending Provider: Angel Chung Admit Provider: Angel Chung Primary Care Provider: Hermelinda Read Other Providers: Anthony Lucas,Home Health Other Interventions: Discharge Summary Assessment (RN) Last Done: 02/04/22 10:20
== END 2022-02-04 12:45 | disposition home health service (06) ==
LOC: ASU 09:26 → 3N 09:26